=== PATIENT | female | born 1970 | race Two or more races ===

== ENCOUNTER 2017-03-18 19:41 | Emergency (ER) | payer BC ==
[~2017-03-18] VITALS: Ht 157.5 cm; Wt 65.5 kg
[~2017-03-18 19:41] MED LIST: ATOR20TA38 PO; BENA10TA48 PO; LEVO75TA5 PO; LISI10TA2 PO; METF500T4 PO; METO-448 PO; PANT20TA2 PO
[2017-03-18 19:51] VITALS: Ht 157.5 cm; Wt 65.5 kg
--- NOTE | 2017-03-18 22:24 | ERD ---
ER Documentation Chief Complaint Date/Time DATE: 03/18/17 TIME: 22:18 Chief Complaint R upper arm pain for weeks (denies injury); cough x 2 weeks HPI 46-year-old female presents to emergency department for complaints of right upper arm pain for 1 month now, worse today. Patient describes the pain as sharp pain, succession scale, not better or worse with anything. Patient denies any trauma in affected area. Patient is diabetic. Patient states that it radiates from the right upper arm to lower arm times. Patient also has been having cough for 2 weeks. Patient has been having dry cough, on and off fever. Patient denies any wheezing. Patient does not have any chest pain or palpitations. ROS All systems reviewed and are negative except as per history of present illness. Medications Home Meds Reported Medications Levothyroxine Sodium* (Levothyroxine Sodium*) 75 Mcg Tablet, 75 MCG PO DAILY, TAB 06/27/14 Lisinopril* (Lisinopril*) 10 Mg Tablet, 10 MG PO DAILY, TAB 06/27/14 Metoprolol Tartrate* (Lopressor*) 25 Mg Tab, 25 MG PO BID, TAB 06/27/14 Pantoprazole* (Protonix*) 20 Mg Tablet.dr, 20 MG PO DAILY, TAB 06/27/14 Metformin Hcl* (Metformin Hcl*) 500 Mg Tablet, 1000 MG PO BID, TAB 06/27/14 Benazepril Hcl* (Benazepril Hcl*) 10 Mg Tablet, 10 MG PO BID, TAB 06/27/14 Atorvastatin Calcium* (Atorvastatin Calcium*) 20 Mg Tablet, 20 MG PO HS, TAB 06/27/14 Allergies Allergies: Coded Allergies: No Known Allergies (Verified Allergy, Mild, 06/27/14) PMhx/Soc History of Surgery: Yes (cs x 2) Anesthesia Reaction: No Hx Neurological Disorder: No Hx Respiratory Disorders: No Hx Cardiac Disorders: No Hx Psychiatric Problems: No Hx Miscellaneous Medical Probl: Yes (htn,hypercholesterolemia,hypothyroid, DM) Hx Alcohol Use: No Hx Substance Use: No Hx Tobacco Use: No Smoking Status: Never smoker FmHx Family History: No coronary disease, No diabetes, No other Physical Exam Vitals Vital Signs Date Time Temp Pulse Resp B/P Pulse Ox O2 Delivery O2 Flow Rate FiO2 03/18/17 19:51 99.1 97 20 122/83 99 Physical Exam GENERAL: The patient is well developed and appropriate for usual state of health, in no apparent distress. CHEST: Clear to auscultation bilaterally. There are no rales, wheezes or rhonchi. HEART: Regular rate and rhythm. No murmurs, clicks, rubs or gallops. No S3 or S4. ABDOMEN: Soft, nontender and nondistended. Good bowel sounds. No rebound or guarding. No gross peritonitis. No gross organomegaly or masses. No Casey sign or McBurney point tenderness. BACK: No midline or flank tenderness. EXTREMITIES: Full range of motion of the right elbow and the right shoulder without any restriction, no ecchymosis or swelling noted in the right upper arm. Equal pulses bilaterally. There is no peripheral clubbing, cyanosis or edema. No focal swelling or erythema. Full range of motion. Grossly neurovascularly intact. NEURO: Alert and oriented. Cranial nerves 2-12 intact. Motor strength in all 4 extremities with 5/5 strength. Sensation grossly intact. Normal speech and gait. SKIN: There is no apparent rash or petechia. The skin is warm and dry. HEMATOLOGIC AND LYMPHATIC: There is no evidence of excessive bruising or lymphedema. No gross cervical, axillary, or inguinal lymphadenopathy. Results 24 hrs PROCEDURE: XR Chest. CLINICAL INDICATION: Cough for 2 weeks. TECHNIQUE: Single frontal view. COMPARISON: 10/06/2012. FINDINGS: There is a benign calcified granuloma in the right midlung zone laterally. The lungs are otherwise clear. The heart size is normal. There is no pleural effusion. There is no pneumothorax. IMPRESSION: 1. Previous granulomatous disease. 2. Otherwise normal chest x-ray. 3. No change from 10/06/2012. RPTAT: QQ .Christopher Guzman MD, Date Time Electronically viewed and signed by .Christopher Guzmna MD, on 03/18/2017 22:38 .R/ CC: JEMIMA DE LEON NP PROCEDURE: XR Chest. CLINICAL INDICATION: Cough for 2 weeks. TECHNIQUE: Single frontal view. COMPARISON: 10/06/2012. FINDINGS: There is a benign calcified granuloma in the right midlung zone laterally. The lungs are otherwise clear. The heart size is normal. There is no pleural effusion. There is no pneumothorax. IMPRESSION: 1. Previous granulomatous disease. 2. Otherwise normal chest x-ray. 3. No change from 10/06/2012. RPTAT: QQ .Christopher Guzman MD, MD Date Time Electronically viewed and signed by .Christopher Guzman MD, MD on 03/18/2017 22:38 .R/ CC: JEMIMA DE LEON [employer] Procedures/MDM Medical Decision Making: Patient symptoms are most likely consistent with acute bronchitis, which possibly is from atypical infection. There is low suspicion for Pneumonia at this time since patients lungs sounds are clear, patient O2 saturation is normal and patient doesnt show any respiratory distress. Patients chest xray doesnt show infiltrates or any other cardiopulmonary emergencies at this time. There is low suspicion for other cardiopulmonary emergencies at this time such as CHF, Pulmonary Embolism, Pneumothorax, Aortic Aneurysm or any other cardiopulmonary emergencies at this time. There is low suspicion for sepsis. Patient appears well and is hemodynamically stable. Fever is controlled with medicines. Medical Decision Making: Patient's pain is most likely consistent with a r arm muscle pain or neuropathic pain. There is no suspicion for neurovascular compromise. Patient has intact sensation and circulation of the affected extremity. There is low suspicion for septic arthritis. Patient does not have any fever. Radiology exams of the affected area does not show any fracture or dislocation. Disposition: Home. Condition: Stable Prescriptions: Azithromycin, guaifenesin DM, Zyrtec, ibuprofen, tramadol Instructions: Patient is advised to take medications as prescribed. Patient is advised to rest. Patient advised to increase fluid intake, do humidifier at home and if possible, do salt water gargles. Patient is advised that if symptoms are worse, shortness of breath, uncontrolled fever, stridor, vomiting, worst signs and symptoms to return to emergency department immediately. Otherwise, patient is advised to follow up with primary doctor in 5-7 days. Disclaimer: Inadvertent spelling and grammatical errors are likely due to EHR/ dictation software use and do not reflect on the overall quality of patient care. Also, please note that the electronic time recorded on this note does not necessarily reflect the actual time of the patient encounter. Departure Diagnosis: Primary Impression: Acute bronchitis Bronchitis organism: unspecified organism Qualified Code: J20.9 - Acute bronchitis, unspecified organism Additional Impression: Arm pain, right Condition: Stable Patient Instructions: Contusion, Lower Extremity (), Contusion, Upper Extremity Additional Instructions: Patient is advised to take medications as prescribed. Patient is advised to rest. Patient advised to increase fluid intake, do humidifier at home and if possible, do salt water gargles. Patient is advised that if symptoms are worse, shortness of breath, uncontrolled fever, stridor, vomiting, worst signs and symptoms to return to emergency department immediately. Otherwise, patient is advised to follow up with primary doctor in 5-7 days. JEMIMA DE LEON NP Mar 18, 2017 22:24
--- NOTE | 2017-03-18 22:38 | RADRPT ---
PROCEDURE: XR Chest. CLINICAL INDICATION: Cough for 2 weeks. TECHNIQUE: Single frontal view. COMPARISON: 10/06/2012. FINDINGS: There is a benign calcified granuloma in the right midlung zone laterally. The lungs are otherwise c lear. The heart size is normal. There is no pleural effusion. There is no pneumothorax. IMPRESSION: 1. Previous granulomatous disease. 2. Otherwise normal chest x-ray. 3. No change from 10/06/2012. RPTAT: QQ .Christopher Guzman MD, MD Date Time Electronically viewed and signed by .Christopher Guzman MD, on 03/18/2017 22:38 .R/
--- NOTE | 2017-03-18 22:38 | RADRPT ---
PROCEDURE: XR Right Humerus. CLINICAL INDICATION: Right arm pain. TECHNIQUE: AP and lateral views of the right humerus were performed. COMPARISON: None. FINDINGS: There is no fracture or dislocation. The soft tissues are normal. Articular surfaces are intact. There is no lytic or blastic lesion. There is no radiopaque foreign body. IMPRESSION: 1. Unremarkable images of the right humerus. RPTAT: QQ .Christopher Guzman MD, MD Date Time Electronically viewed and signed by .Christopher Guzman MD, on 03/18/2017 22:38 .R/
[2017-03-18] MEDS ORDERED: AZIT250T94 PO (22:54)
[2017-03-18] MEDS ORDERED: IBUP-1542 PO (22:54)
[2017-03-18] MEDS ORDERED: TRAM50TA2 PO (22:54)
[2017-03-18] MEDS ORDERED: GUAI120S26 PO (22:54)
[2017-03-18] MEDS ORDERED: CETI10CA PO (22:54)
== END 2017-03-18 23:17 | disposition home or self-care (01) ==
LOC: FTE 19:41
DX: J20.9 Acute bronchitis, unspecified (principal); E11.9 Type 2 diabetes mellitus without complications; I10 Essential (primary) hypertension; E03.9 Hypothyroidism, unspecified; Z79.84 Long term (current) use of oral hypoglycemic drugs
CPT/HCPCS: 71010; 73060; Z7502

== ENCOUNTER 2017-07-31 06:32 | Day surgery (SDC) | END 2017-07-31 13:45 | disposition home or self-care (01) ==